=== PATIENT | female | born 1970 | race Hispanic/Latino ===

== ENCOUNTER 2022-09-17 07:36 | Observation (INO) | payer OTHER ==
[~2022-09-17] VITALS: Ht 165.1 cm; Wt 108.9 kg
[2022-09-17 08:20] VITALS: BP 110/75; PULSE 80; RESP 18; O2SAT 97
[2022-09-17] MEDS ORDERED: LEVO100 PO (09:29)
[2022-09-17] MEDS ORDERED: ONDA8TAB12 PO (09:29)
[2022-09-17] MEDS ORDERED: HYDR8TAB18 PO (09:29)
[2022-09-17] MEDS ORDERED: CYCL5TAB PO (09:29)
[2022-09-17 10:24] LABS: BASOPHILS % (AUTO) 1.3 % (0.0-5.0); EOSINOPHILS % (AUTO) 4.4 % (0.0-8.0); HEMATOCRIT 34.2 % (36-48); LYMPHOCYTES % (AUTO) 29.6 % (21.0-51.0); MEAN CORPUSCULAR HEMOGLOBIN 24.1 pg (27.0-33.0); MEAN CORPUSCULAR HGB CONC 30.4 g/dL (32.0-36.0); MEAN CORPUSCULAR VOLUME 79.4 fL (79-99); MONOCYTES % (AUTO) 6.8 % (3.0-13.0); NEUTROPHILS % (AUTO) 57.7 % (40.0-77.0); PLATELET COUNT (AUTO) 281 K/uL (130-400); RED BLOOD CELL COUNT(AUTO) 4.31 MIL/uL (4.00-5.50); WHITE BLOOD COUNT (AUTO) 4.5 K/uL (4.8-10.8)
[2022-09-17] MEDS ORDERED: LEVETIRACETAM 500 MG in 0.9%NACL 100ML 100 ML IV SCH (10:30)
[2022-09-17 10:31] LABS: INR 0.93 (0.85-1.15); PROTHROMBIN TIME 10.8 SEC (9.6-11.6)
[2022-09-17 10:32] LABS: PARTIAL THROMBOPLASTIN TIME 28.4 SEC (26.3-35.5)
[2022-09-17 10:35] LABS: ALBUMIN 3.1 g/dL (3.5-5.0); CREATININE 1.1 mg/dL (0.5-1.5); POTASSIUM 3.6 mmol/L (3.5-5.1); TOTAL PROTEIN, SERUM 6.2 g/dL (6.0-8.3)
[2022-09-17 12:00] VITALS: BP 116/65; PULSE 70; RESP 18
[2022-09-17] MEDS ORDERED: COMPOUND IV MISC 1 EACH IVSOLN MISC PRN (12:30)
[2022-09-17] MEDS ORDERED: IOHEXOL-350 75 ML VIAL IV ONE (13:57)
[2022-09-17 16:00] VITALS: BP 141/73; PULSE 70; RESP 18
[2022-09-17 20:00] VITALS: BP 127/65; PULSE 73; RESP 18; O2SAT 97
[2022-09-17] MEDS ORDERED: LEVETIRACETAM 500 MG/5 ML SD VIAL IV SCH (21:00)
[2022-09-17 23:55] VITALS: BP 108/60; PULSE 70; RESP 18
[2022-09-18] VITALS (11 sets, daily range): BP systolic 99–113; BP diastolic 44–68; PULSE 69–84; RESP 18–20; O2SAT 98
[2022-09-18] MEDS ORDERED: MIDAZOLAM HCL 1 MG/ML 2ML VIAL ONE (12:01)
[2022-09-18] MEDS ORDERED: FENTANYL CITRATE PF 50 MCG/1 ML 2ML VIAL ONE (12:01)
[2022-09-18] MEDS ORDERED: LIDOCAINE HCL 1% 20 ML VIAL ONE (12:01)
[2022-09-18] MEDS ORDERED: KETOROLAC 30MG VIAL (30MG/ML) IM ONE (16:45)
== END 2022-09-18 17:30 | disposition home or self-care (01) ==
LOC: EDH 07:36 → DIRECT 07:37 → UNDOADMOB 08:15 → DIRECT 08:15 → 3BH 08:17 → DIRECT 08:17
PROVIDERS: ADMIT Internal Medicine Hematology & Oncology; ATTEND Internal Medicine Hematology & Oncology
DX: R16.0 Hepatomegaly, not elsewhere classified (principal); K76.0 Fatty (change of) liver, not elsewhere classified; N18.9 Chronic kidney disease, unspecified; G62.9 Polyneuropathy, unspecified; E03.9 Hypothyroidism, unspecified; Z63.4 Disappearance and death of family member; Z90.49 Acquired absence of other specified parts of digestive tract; Z98.84 Bariatric surgery status; Z87.891 Personal history of nicotine dependence; Z79.899 Other long term (current) drug therapy
CPT/HCPCS: 80053; 85025; 85610; 85730; 36415; 74160; 76705; 96372; 74176; 47000; 76942; G0378 ×33; G0379; Q9967; J3010; J2250; J1885; J1953

== ENCOUNTER → 2022-10-09 | Outpatient (CLI) | payer OTHER ==
[~2022-10-09] VITALS: Ht 165.1 cm; Wt 108.1 kg
[~2022-10-09] MED LIST: CYCL5TAB PO; HYDR8TAB18 PO; LEVO100 PO; ONDA8TAB12 PO
[2022-10-09 16:52] VITALS: BP 109/62; PULSE 75; RESP 17
[2022-10-09 17:14] LABS: BASOPHILS # (AUTO) 0.07 K/uL (0.00-0.20); BASOPHILS % (AUTO) 1.2 % (0.0-5.0); EOSINOPHILS # (AUTO) 0.35 K/uL (0.00-0.70); EOSINOPHILS % (AUTO) 5.9 % (0.0-8.0); HEMATOCRIT 40.1 % (36-48); IMMATURE GRANULOCYTE ABSOLUTE 0.01 K/uL (0-1); LYMPHOCYTES # (AUTO) 1.6 K/uL (1.0-4.8); LYMPHOCYTES % (AUTO) 27.2 % (21.0-51.0); MEAN CORPUSCULAR HEMOGLOBIN 25.2 pg (27.0-33.0); MEAN CORPUSCULAR HGB CONC 30.9 g/dL (32.0-36.0); MEAN CORPUSCULAR VOLUME 81.3 fL (79-99); MONOCYTES # (AUTO) 0.5 K/uL (0.1-1.0); MONOCYTES % (AUTO) 8.1 % (3.0-13.0); NEUTROPHILS # (AUTO) 3.4 K/uL (1.8-7.7); NEUTROPHILS % (AUTO) 57.4 % (40.0-77.0); PLATELET COUNT (AUTO) 375 K/uL (130-400); RED BLOOD CELL COUNT(AUTO) 4.93 MIL/uL (4.00-5.50)
[2022-10-09 17:25] LABS: INR 0.93 (0.85-1.15); PROTHROMBIN TIME 10.3 SEC (9.6-11.6)
[2022-10-09 17:26] LABS: PARTIAL THROMBOPLASTIN TIME 27.7 SEC (26.3-35.5)
[2022-10-09 17:28] LABS: BILIRUBIN,TOTAL 0.2 mg/dL (0.2-1.0); CREATININE 1.1 mg/dL (0.5-1.5); POTASSIUM 3.9 mmol/L (3.5-5.1); TOTAL PROTEIN, SERUM 6.8 g/dL (6.0-8.3)
== END | disposition home or self-care (01) ==
LOC: DAH 10:00 → EDSTATUS 10-11 14:00
PROVIDERS: ATTEND Thoracic Surgery (Cardiothoracic Vascular Surgery)
DX: Z01.818 Encounter for other preprocedural examination (principal); C38.3 Malignant neoplasm of mediastinum, part unspecified
CPT/HCPCS: 71045; 80053; 84703; 85025; 85610; 85730; 86850; 86900; 86901; 36415; 93005; A6260

== ENCOUNTER 2022-11-02 05:33 | Emergency (ER) | payer OTHER ==
[~2022-11-02] VITALS: Ht 165.1 cm; Wt 106.6 kg
[2022-11-02] MEDS ORDERED: HYDROMORPHONE HCL 2 MG TAB ONE (05:48)
[2022-11-02] MEDS ORDERED: HYDROMORPHONE HCL 2 MG TAB PO ONE (06:00)
[2022-11-02] MEDS ORDERED: ALBUTEROL 0.083% 2.5 MG/3 ML INH IH ONE (06:00)
[2022-11-02 06:28] VITALS: RESP 18
[2022-11-02] MEDS ORDERED: LIDOCAINE HCL 2% VISCOUS 15 ML UDCUP PO ONE (08:00)
[2022-11-02] MEDS ORDERED: MAG/ALUM/SIMETH 30 ML UDCUP PO ONE (08:00)
[2022-11-02 08:27] LABS: BASOPHILS # (AUTO) 0.03 K/uL (0.00-0.20); BASOPHILS % (AUTO) 0.4 % (0.0-5.0); EOSINOPHILS # (AUTO) 0.15 K/uL (0.00-0.70); EOSINOPHILS % (AUTO) 2.1 % (0.0-8.0); HEMATOCRIT 39.3 % (36-48); IMMATURE GRANULOCYTE ABSOLUTE 0.02 K/uL (0-1); LYMPHOCYTES # (AUTO) 1.5 K/uL (1.0-4.8); LYMPHOCYTES % (AUTO) 21.4 % (21.0-51.0); MEAN CORPUSCULAR HEMOGLOBIN 26.1 pg (27.0-33.0); MONOCYTES # (AUTO) 0.5 K/uL (0.1-1.0); MONOCYTES % (AUTO) 6.9 % (3.0-13.0); NEUTROPHILS # (AUTO) 4.9 K/uL (1.8-7.7); NEUTROPHILS % (AUTO) 68.9 % (40.0-77.0); PLATELET COUNT (AUTO) 304 K/uL (130-400); RED BLOOD CELL COUNT(AUTO) 4.68 MIL/uL (4.00-5.50); RED CELL DISTRIBUTION WIDTH 22.5 % (11.0-15.5); WHITE BLOOD COUNT (AUTO) 7.1 K/uL (4.8-10.8)
[2022-11-02 08:42] LABS: CREATININE 0.9 mg/dL (0.5-1.5); POTASSIUM 3.5 mmol/L (3.5-5.1)
[2022-11-02 08:47] LABS: ALBUMIN 2.9 g/dL (3.5-5.0); BILIRUBIN,TOTAL 0.2 mg/dL (0.2-1.0); TOTAL PROTEIN, SERUM 6.6 g/dL (6.0-8.3)
[2022-11-02] MEDS ORDERED: PANT40TA55 PO (09:00)
[2022-11-02 09:25] VITALS: BP 133/78; PULSE 78; RESP 18; O2SAT 98
== END 2022-11-02 09:35 | disposition home or self-care (01) ==
LOC: EDH 05:33
DX: G89.3 Neoplasm related pain (acute) (chronic) (principal); E03.9 Hypothyroidism, unspecified; Z79.890 Hormone replacement therapy; Z90.49 Acquired absence of other specified parts of digestive tract
CPT/HCPCS: 36415; 71045; 80053; 84484; 85025; 85378; 93005; 94640

== ENCOUNTER 2024-02-28 15:01 | Emergency (ER) | payer BC, SELFPAY ==
[~2024-02-28] VITALS: Ht 165.1 cm; Wt 111.1 kg
[~2024-02-28 15:01] MED LIST changes: -CYCL5TAB PO; +CYCL5TAB3 PO; +ONDA-245 PO; -ONDA8TAB12 PO; +PANT40TA55 PO
[2024-02-28 15:16] VITALS: BP 141/75; PULSE 74; RESP 14; TEMP 97.8; O2SAT 98
[2024-02-28] MEDS: ketOROlac 60 MG VIAL (30MG/ML) IM ONE (15:35)
[2024-02-28] MEDS ORDERED: CLIN-141 PO (15:36)
[2024-02-28] MEDS ORDERED: IBUP-2077 PO (15:36)
--- NOTE | 2024-02-28 15:37 | ERN ---
ED Note History of Present Illness Stated Complaint: TOOTHACHE Chief Complaint: Tooth Ache/Pain Time Seen by MD: 15:23 Dictation: PATIENT IS A 53-YEAR-OLD FEMALE COMING IN TODAY WITH COMPLAINTS OF DENTAL DECAY GOING INTO THE PULP TOOTH NUMBER 28 SHE HAS HAD FOR TWO WEEKS. NO FEVER NO CHILLS NO NAUSEA VOMITING. STATES SHE HAS AN APPOINTMENT WITH HER DENTIST ON February HOWEVER STATES IT HURTS. SHE HAS NOT BEEN TO SEE HER PRIMARY CARE DOCTOR. Allergies: Coded Allergies: No Known Drug Allergies (Unverified Allergy, Unknown, 09/17/22) Home Meds Active Scripts Pantoprazole Sodium (Protonix) 40 Mg Ectab, 40 MG PO DAILY for 30 Days, #30 TAB.EC Prov:YARY ESTRADA MD 11/02/22 Reported Medications Ondansetron (Ondansetron Odt) 8 Mg Tab.rapdis, 1 TAB PO Q6HPRN PRN for NAUSEA 09/17/22 Cyclobenzaprine HCl (Cyclobenzaprine HCl) 5 Mg Tablet, 1 TAB PO TID 09/17/22 Hydromorphone HCl (Hydromorphone HCl) 8 Mg Tablet, 1 TAB PO TIDP PRN for pain 09/17/22 Levothyroxine Sodium (Levothroid/Synthroid) 100 Mcg Tab, 1 TAB PO DAILY for disorder of thyroid gland 09/17/22 Past Medical History Past Medical History: Depression, Hypothyroid Additional Past Medical Hx: BACK PAIN, AUTOIMMUNE, SCOLIOSIS Surgical History: Appendectomy, Cholecystectomy, Bariatric Surgery, Surgical History Other: BACK, SBO Social History: Lives with family History: Not Applicable RN Note Reviewed/Agreed w/PFSH: Yes Review of System Dictation CONSTITUTIONAL: NEGATIVE EXCEPT FOR HPI HEAD/FACE: NEGATIVE EXCEPT FOR HPI EENT: NEGATIVE EXCEPT FOR HPI DENTALGIA WITH DENTAL DECAY RESPIRATORY: NEGATIVE EXCEPT FOR HPI GASTROINTESTINAL/ABDOMINAL: NEGATIVE EXCEPT FOR HPI GENITOURINARY: NEGATIVE EXCEPT FOR HPI MUSCULOSKELETAL: NEGATIVE EXCEPT FOR HPI INTEGUMENTARY: NEGATIVE EXCEPT FOR HPI NEUROLOGICAL/PSYCH: NEGATIVE EXCEPT FOR HPI HEMATOLOGIC/LYMPHATIC: NEGATIVE EXCEPT FOR HPI ALL SYSTEMS NEGATIVE, EXCEPT NOTED ABOVE. 13 POINT REVIEW OF SYSTEMS ASSESSED AND ALL NEGATIVE EXCEPT FOR ABOVE. Initial Vital Sign VS Vital Signs Date Time Temp Pulse Resp B/P (MAP) Pulse Ox O2 Delivery O2 Flow Rate FiO2 02/28/24 15:04 97.9 74 16 133/59 98 Room Air 0 02/28/24 15:16 21 Physical Exam Dictation VITAL SIGNS REVIEWED GENERAL APPEARANCE: ALERT, ORIENTED X 3, MODERATE ACUTE DISTRESS, WELL DEVELOPED, NOURISHED. OBESE HEAD AND FACE: NON-TRAUMATIC. EYES: PERRL, PINK CONJUNCTIVAS, EYELID NO TRAUMA, ANTERIOR CHAMBER WITH ARCUS SENILIS. EARS: PINNAS INTACT AND NO SIGNS OF TRAUMA OR ERYTHEMA EAR CANALS CLEAR AND NO DISCHARGE TM NO ERYTHEMA NOSE: NO DISCHARGE, NO BLEEDING. OROPHARYNX: MOUTH NORMAL, TONGUE PINK, DENTAL DECAY WITH MILD GINGIVAL ERYTHEMA TOOTH NUMBER 28. NO FACIAL SWELLING PHARYNX CLEAR,NO ERYTHEMA, TONSILS NO EXUDATES, NO ABSCESSES NOTED, MUCOUS MEMBRANE MOIST NECK: SUPPLE, NON-TENDER, NO THYROMEGALY, NO MASSES, NO JVD, NO BRUITS BREAST:DEFERRED CHEST:NO TENDERNESS, NO CREPITUS, NO PARADOXICAL MOVEMENT, NO RETRACTIONS LUNGS:CLEAR, WELL-VENTILATED, SYMMETRIC, NO RALES, NO WHEEZING, NO RHONCHI, NO STRIDOR, GOOD BREATH SOUNDS BILATERALLY HEART: REGULAR RATE, REGULAR RHYTHM, NO MURMUR, NO GALLOPS VASCULAR: NO PERIPHERAL EDEMA, ABDOMEN: SOFT, POSITIVE BOWEL SOUNDS, NONDISTENDED, NO GUARDING, NONTENDER, NO REBOUND, NO MASSES NO HEPATOMEGALY, NO SPLENOMEGALY, NO POOLE'S SIGN, NO HERNIAS. RECTAL: DEFERRED GENITAL: DEFERRED NEUROLOGICAL: NORMAL SPEECH, MOTOR FUNCTION INTACT, SENSORY FUNCTION INTACT MUSCULOSKELETAL: NECK NONTENDER, FULL RANGE OF MOTION, BACK NONTENDER, FULL RANGE OF MOTION, EXTREMITIES: NONTENDER, FULL RANGE OF MOTION SKIN: COLOR PINK, DRY, NO TURGOR, NO RASH, NO LACERATIONS, NO ABRASIONS, NO CONTUSIONS. LYMPHATIC: DEFERRED Results (Laboratory/Radiology) Labs Reviewed?: Yes ED Course ED Course Orders Procedure Category Date Status Time Ketorolac 60mg/2ml PHA 02/28/24 Transmitted (Toradol 60mg/2ml) 15:30 Current Medications Medications (Trade) Dose Ordered Sig/Kathleen Route PRN Reason Start Time Stop Time Status Last Admin Dose Admin Ketorolac Tromethamine (toRADol 60MG/ 2ML) 60 mg ONCE ONCE IM 02/28/24 15:30 02/28/24 15:31 Vital Signs Date Time Temp Pulse Resp B/P (MAP) Pulse Ox O2 Delivery O2 Flow Rate FiO2 02/28/24 15:16 97.9 74 14 141/75 98 Room Air* 0 21 02/28/24 15:04 97.9 74 16 133/59 98 Room Air 0 1532, PATIENT GIVEN TORADOL 60 MG IM AND PRESCRIBED CLINDAMYCIN AND IBUPROFEN TOLD TO SEE HER DENTIST OR HER PRIMARY CARE DOCTOR FOR FURTHER MANAGEMENT Medical Decision Making MDM MEDICAL DISCHARGE MAKING BASED ON EMPIRIC TREATMENT FOR DENTALGIA WITH DENTAL CARIES INTO PULP PATIENT GIVEN TORADOL 60 MG IM PRESCRIBED IBUPROFEN AND CLINDAMYCIN 300 Q.I.D. FOR 10 DAYS. DX & DISP Disposition: Discharge Departure Impression: Primary Impression: Dental caries extending into pulp Additional Impression: Dentalgia Condition: Stable Scripts Ibuprofen (Ibuprofen 800 mg Tab) 800 Mg Tab 800 MG PO Q8H PRN for fever or pain, #30 TAB 0 Refills Prov: ANA LILIA MEDEL DIRECTOR WORKFORCE MANAGEMENT 02/28/24 Clindamycin HCl (Clindamycin HCl) 300 Mg Capsule 1 CAP PO QID for 10 Days, #40 CAP 0 Refills Prov: ANA LILIA MEDEL DIRECTOR WORKFORCE MANAGEMENT 02/28/24 Additional Instructions: FOLLOW-UP WITH PRIMARY CARE PROVIDER IN 1 TO 2 DAYS. TAKE MEDICATIONS DIRECTED HERE IN THE EMERGENCY ROOM. OKAY TO CONTINUE HOME MEDICATIONS UNLESS OTHERWISE DISCUSSED DURING YOUR VISIT IN THE EMERGENCY ROOM TODAY. RETURN TO YOUR NEAREST EMERGENCY ROOM IF SYMPTOMS WORSEN OR IF THERE IS NO IMPROVEMENT. CALL 911 IF YOU NEED IMMEDIATE ASSISTANCE. TAKE TYLENOL OR MOTRIN [id number] NEEDED AND IF NO CONTRAINDICATIONS ARE PRESENT. INCREASE ORAL HYDRATION. A WOUND CULTURE OR URINE CULTURE WAS ORDERED HERE IN THE EMERGENCY ROOM DEPARTMENT PLEASE FOLLOW-UP WITH PRIMARY CARE PROVIDER AND ADVISE THEM TO GET REPEAT PORTS FROM OUR FACILITY. IF YOU HAD ANY [id number] WRAP/SPLINTS THAT WERE APPLIED HERE, PLEASE DO NOT REMOVE THEM UNTIL YOU SEE YOUR PRIMARY CARE OR SPECIALTY. TAKE CLINDAMYCIN DIRECTED UNTIL GONE. TAKE TWO CAPSULES THE 1ST DOSE, THEN ONE CAPSULE EVERY 6 HOURS UNTIL GONE. SEE YOUR PRIMARY CARE DOCTOR FOR FOLLOW UP OR YOUR DENTIST FOR MANAGEMENT Referrals: MELINA OLIVIA MD (PCP) Time of Disposition: 15:35 I have reviewed the case, and I agree with, Diagnosis and Plan ANA LILIA MEDEL NP Feb 28, 2024 15:37
== END 2024-02-28 15:46 | disposition home or self-care (01) ==
LOC: EDH 15:01
DX: K02.9 Dental caries, unspecified (principal); E03.9 Hypothyroidism, unspecified; Z79.890 Hormone replacement therapy; Z79.899 Other long term (current) drug therapy; Z90.49 Acquired absence of other specified parts of digestive tract; Z98.890 Other specified postprocedural states
CPT/HCPCS: 99284; 96372; J1885

== ENCOUNTER 2024-09-06 03:56 | Emergency (ER) | payer BC ==
[~2024-09-06] VITALS: Ht 162.6 cm; Wt 112.9 kg
[~2024-09-06 03:56] MED LIST changes: +CLIN-141 PO; +IBUP-2077 PO
[2024-09-06 03:57] VITALS: TEMP 98.9
--- NOTE | 2024-09-06 04:15 | NUR ---
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
--- NOTE | 2024-09-06 04:23 | ERN ---
ED Note History of Present Illness Stated Complaint: HEADACHE Chief Complaint: Headache Time Seen by MD: 04:04 Dictation: This is a 53-year-old morbidly obese female who came in with her spouse for evaluation of a headache. She stated that she has headaches chronically and also back pain and she takes oxycodone. She ran out of oxycodone 2 days ago. Apparently she took whatever she had at home as well as Ambien for sleep and as the headache was so severe she came in for evaluation. She appeared very restless and most of her headache is across the forehead which started earlier today. No nausea vomitings no visual disturbance-diplopia or motor weakness no seizure activity she stated that she has chronic pain due to rheumatoid arthritis. The spouse also indicated that she fell a few days ago and bruised her right leg. No loss of consciousness no injury to the head She denied any unilateral lacrimation or nasal drainage. No history of any aura. No photosensitivity. Temperature 99 pulse 96 respirations 16 blood pressure 147/101 with a pulse oximetry of 98% on room air Her other medical problems include hypothyroidism, depression and history of bariatric surgery, history of autoimmune disease she states rheumatoid arthritis Allergies: Coded Allergies: No Known Drug Allergies (Unverified Allergy, Unknown, 09/17/22) Home Meds Active Scripts Prochlorperazine Maleate (Compazine) 5 Mg Tab, 1 TAB PO QID for 5 Days, #20 TAB 0 Refills Prov:SUSU COLE MD 09/06/24 Ketorolac Tromethamine (Toradol) 10 Mg Tab, 10 MG PO QID for pain for 5 Days, #20 TAB 0 Refills Prov:SUSU COLE MD 09/06/24 Ibuprofen (Ibuprofen 800 mg Tab) 800 Mg Tab, 800 MG PO Q8H PRN for fever or pain, #30 TAB 0 Refills Prov:ANA LILIA MEDEL NP 02/28/24 Clindamycin HCl (Clindamycin HCl) 300 Mg Capsule, 1 CAP PO QID for 10 Days, #40 CAP 0 Refills Prov:ANA LILIA MEDEL NP 02/28/24 Pantoprazole Sodium (Protonix) 40 Mg Ectab, 40 MG PO DAILY for 30 Days, #30 TAB.EC Prov:YARY ESTRADA MD 11/02/22 Reported Medications Ondansetron (Ondansetron Odt) 8 Mg Tab.rapdis, 1 TAB PO Q6HPRN PRN for NAUSEA 09/17/22 Cyclobenzaprine HCl (Cyclobenzaprine HCl) 5 Mg Tablet, 1 TAB PO TID 09/17/22 Hydromorphone HCl (Hydromorphone HCl) 8 Mg Tablet, 1 TAB PO TIDP PRN for pain 09/17/22 Levothyroxine Sodium (Levothroid/Synthroid) 100 Mcg Tab, 1 TAB PO DAILY for disorder of thyroid gland 09/17/22 Past Medical History Past Medical History: Depression, Hypothyroid Additional Past Medical Hx: BACK PAIN, AUTOIMMUNE, SCOLIOSIS, THYROID Surgical History: Appendectomy, Cholecystectomy, Bariatric Surgery, Surgical History Other: BACK, SBO Family History: Negative Social History: Negative, Lives with family History: Not Applicable RN Note Reviewed/Agreed w/PFSH: Yes Review of System Dictation Constitutional: Negative for fever,chills, and weight loss Eyes: Negative for injury, pain,redness, and discharge ENT: Negative for injury,pain or swelling Cardiovascular: Negative for chest pain, palpitations, and edema Respiratory: Negative for shortness of breath, cough, and wheezing, Abdomen/GI: Negative for abdominal pain, nausea, vomiting, diarrhea, and constipation Back: Negative for injury and pain : Negative for injury, bleeding and discharge MS/Extremity: Negative for injury and deformity Skin: Negative for rash, and discoloration Neuro: Positive for headache, denied weakness, numbness, tingling, and seizure Psych: Negative for suicide ideation, homicidal ideation, and hallucinations Initial Vital Sign VS Vital Signs Date Time Temp Pulse Resp B/P (MAP) Pulse Ox O2 Delivery O2 Flow Rate FiO2 09/06/24 03:57 99.0 96 16 147/101 98 Room Air 09/06/24 05:16 0 21 Physical Exam Dictation General: Sleepy but easily arousable and appropriate, NAD morbidly obese Head/Face: Normocephalic, atraumatic Eyes: PERRL, EOMI, vision at baseline ENT: oral cavity clear, TMs clear, no signs of infection Neck: Trachea midline, supple, no nuchal rigidity Cardiovascular: RRR, normal S1/S2, No MRGs, no JVD Respiratory: CTAB, no respiratory distress, No rales or wheezes Abdomen: Soft, non-tender, non-distended, normal bowel sounds, no guarding or rebound. Skin: Warm, dry, normal turgor, bruises on the lateral aspect of the right leg MS/Extremity: Pulses equal, no cyanosis, neurovascular intact, FROM Neuro: COAx4, GCS 15, strength 5/5, CN 2-12 intact, normal cerebellar exam, normal gait, Psych: Normal behavior, mood, and affect normal Extremities-trace edema without any palpable cords, Homans sign is negative Results (Laboratory/Radiology) Laboratory/Radiology Laboratory Tests Test 09/06/24 04:15 09/06/24 04:19 White Blood Count 12.5 K/uL (4.8-10.8) H Red Blood Count 4.54 MIL/uL (4.00-5.50) Hemoglobin 13.0 g/dL (12.0-16.0) Hematocrit 39.7 % (36-48) Mean Corpuscular Volume 87.4 fL (79-99) Mean Corpuscular Hemoglobin 28.6 pg (27.0-33.0) Mean Corpuscular Hemoglobin Concent 32.7 g/dL (32.0-36.0) Red Cell Distribution Width 13.9 % (11.0-15.5) Platelet Count 296 K/uL (130-400) Mean Platelet Volume 10.0 fL (7.5-10.5) Immature Granulocyte % (Auto) 0.6 % (0-1) Neutrophils (%) (Auto) 77.7 % (40.0-77.0) H Lymphocytes (%) (Auto) 14.4 % (21.0-51.0) L Monocytes (%) (Auto) 7.0 % (3.0-13.0) Eosinophils (%) (Auto) 0.0 % (0.0-8.0) Basophils (%) (Auto) 0.3 % (0.0-5.0) Neutrophils # (Auto) 9.7 K/uL (1.8-7.7) H Lymphocytes # (Auto) 1.8 K/uL (1.0-4.8) Monocytes # (Auto) 0.9 K/uL (0.1-1.0) Eosinophils # (Auto) 0.00 K/uL (0.00-0.70) Basophils # (Auto) 0.04 K/uL (0.00-0.20) Absolute Immature Granulocyte (auto 0.08 K/uL (0-1) Nucleated Red Blood Cells 0.0 % (0.0-0.19) Sodium Level 136 mmol/L (136-145) Potassium Level 4.4 mmol/L (3.5-5.1) Chloride Level 103 mmol/L (101-111) Carbon Dioxide Level 23 mmol/L (21-32) Blood Urea Nitrogen 26 mg/dL (7-18) H Creatinine 1.0 mg/dL (0.5-1.0) Glomerular Filtration Rate Calc 67 mL/min (>90) Random Glucose 107 mg/dL (70-105) H Total Calcium 9.1 mg/dL (8.5-10.1) Urine Color LIGHT-YELLOW (YELLOW) Urine Appearance CLEAR (CLEAR) Urine pH 5.5 (5.0-8.0) Urine Specific [place] 1.025 (1.001-1.031) Urine Protein NEGATIVE mg/dL (NEGATIVE) Urine Glucose (UA) NEGATIVE mg/dL (NEGATIVE) Urine Ketones NEGATIVE mg/dL (NEGATIVE) Urine Occult Blood NEGATIVE (NEGATIVE) Urine Nitrate NEGATIVE (NEGATIVE) Urine Bilirubin NEGATIVE mg/dL (NEGATIVE) Urine Urobilinogen 0.2 mg/dL (0.2-1.0) Urine Leukocyte Esterase NEGATIVE Mert/uL Labs Reviewed?: Yes CT Scan Comment: REASON: severe headache No neuro deficits ORDERING PHYSICIAN: SUSU COLE MD PROCEDURE: HEAD WO - CT HEAD/BRAIN W/O CONTRAST EXAM: CT examination of the Brain without contrast. CLINICAL HISTORY: Severe headache. TECHNIQUE: Thin collimated axial CT images of the brain were obtained with sagittal and coronal reformatted images also submitted. CT scan done according to ALARA (As Low as Reasonably Achievable). CONTRAST USED: None. COMPARISON: None provided. FINDINGS: No acute intracranial abnormality is present. No acute cortical infarction, hemorrhage, mass or mass effect. No hydrocephalus or abnormal extra-axial fluid collections. The posterior fossa is unremarkable. The skull base and calvarium are intact. The included portions of the paranasal sinuses and mastoid air cells are clear. IMPRESSION: No acute intracranial abnormality is present. /[place] DICTATED BY: VERENICE HURST Jr., MD DATE: 09/06/24551 ELECTRONICALLY SIGNED BY: VERENICE HURST Jr., MD DATE: 09/06/24551 ED Course ED Course Orders Procedure Category Date Status Time Cbc With Differential LAB 09/06/24 Complete 04:13 Basic Metabolic Panel LAB 09/06/24 Complete 04:13 Urinalysis Profile LAB 09/06/24 Complete 04:13 Morphine 4mg Syg PHA 09/06/24 Complete (Morphine 4mg Syg) 04:30 Ondansetron 4mg Inj PHA 09/06/24 Complete (Zofran 4mg Inj) 04:30 Ct Head/Brain W/O CT 09/06/24 Resulted Contrast 04:13 Diphenhydramine Hcl PHA 09/06/24 Complete (Benadryl Inj) 04:30 Current Medications Medications (Trade) Dose Ordered Sig/Kathleen Route PRN Reason Start Time Stop Time Status Last Admin Dose Admin Diphenhydramine HCl (BENAdryl INJ) 50 mg ONCE ONCE IV 09/06/24 04:30 09/06/24 04:31 DC 09/06/24 05:06 Morphine Sulfate (morPHINE 4MG SYG) 4 mg ONCE ONCE IVP 09/06/24 04:30 09/06/24 04:31 DC 09/06/24 05:07 Ondansetron HCl (zoFRAN 4MG INJ) 4 mg ONCE ONCE IVP 09/06/24 04:30 09/06/24 04:31 DC 09/06/24 05:06 Vital Signs Date Time Temp Pulse Resp B/P (MAP) Pulse Ox O2 Delivery O2 Flow Rate FiO2 09/06/24 05:16 80 18 156/96 98 Room Air* 0 21 09/06/24 03:57 99.0 96 16 147/101 98 Room Air We will perform diagnostic labs, advanced imaging and administer medications according to the patient's complaint. Once the results are available, will review and personally interpreted the labs to rule out any acute life- threatening emergency the trach require immediate intervention and treatment. I will then re-evaluate the patient after treatment and diagnostic exams have return to determine whether the patient requires any further testing, can safely be discharged home or need further admission to hospital for additional treatment and evaluation. Labs reviewed CBC showed a white count of 12.5 BNP 7 is significant for a BUN and creatinine of 26 and 1.0 Urinalysis is unremarkable. CT scan of the head did not show any intracranial abnormalities. I updated the patient and spouse on all the available results as well as CT head and reassured them. 6:00 a.m. on re-evaluation she felt significantly improved with a headache. I have counseled her on nonsteroidals and renal dysfunction and instructed her not to take more than 5 days but best to avoid it Medical Decision Making MDM MDM: Differential diagnosis: Tension headache, migraine, vascular headache, cluster headache, partial hemicrania, intracranial event, TMJ arthritis Rationale: Tests considered and ordered secondary to shared decision making include: Previous outside records reviewed: Old ER visits. Risk of complication and/or morbidity or mortality of patient management: None Medications-Per medication reconciliation Need for hospitalization: Patient does not meet criteria for hospitalization. Need for emergency major/minor surgery: No There are no social concerns with this patient. Prescription drug management Prescriptions will include symptomatic care Patient's prior external medical records from other ER visits were reviewed by davina harris as indicated. Prior testing and results from previous visits were reviewed. Prior tests were taken into account with medical decision making and resource utilization, independent historian/historians were used to obtain complete medical history. I independently interpreted the test that were performed, results were reviewed by me and considered findings on radiology if ordered. Medical management and examination interpretation discussions were had by me with other qualified healthcare professionals as indicated for the patient's care. Problem List Problem List: (1) Headache syndrome (2) Morbid obesity (3) Hypothyroidism DX & DISP Disposition: Discharge Departure Impression: Primary Impression: Headache syndrome Additional Impressions: Morbid obesity, Hypothyroidism Condition: Stable Scripts Prochlorperazine Maleate (Compazine) 5 Mg Tab 1 TAB PO QID for 5 Days, #20 TAB 0 Refills Prov: SUSU COLE MD 09/06/24 Ketorolac Tromethamine (Toradol) 10 Mg Tab 10 MG PO QID for pain for 5 Days, #20 TAB 0 Refills Prov: SUSU COLE MD 09/06/24 Additional Instructions: Patient and the caregiver have been informed of all the diagnostic tests and the imaging conducted during the today's visit to the emergency room and has verbalized understanding of the results I have personally reviewed and interpreted all diagnostic exams performed here in the ER today as well as the vital signs documented by the nursing staff. The patient is now being discharged to home and should follow up with the primary care physician or the specialist as directed by the ER staff. Follow-up with primary care provider in 1 to 2 days. Take medications as directed here in the emergency room. Okay to continue home medications unless otherwise discussed during your visit in the emergency room today. Return to your nearest emergency room if symptoms worsen or if there is no improvement. Call 911 if you need immediate assistance. Take Tylenol or Motrin [id number] as needed and if no contraindications are present. Increase oral hydration. A wound culture or urine culture was ordered here in the emergency room department please follow-up with primary care provider and advise them to get repeat ports from our facility. If you had any Papo wrap/splints that were applied here, please do not remove them until you see your primary care or specialty. Referrals: MELINA OLIVIA MD (PCP) SUSU COLE MD Sep 06, 2024 04:23
--- NOTE | 2024-09-06 04:25 | NUR ---
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
--- NOTE | 2024-09-06 04:53 | HMCIMG ---
EXAM: CT examination of the Brain without contrast. CLINICAL HISTORY: Severe headache. TECHNIQUE: Thin collimated axial CT images of the brain were obtained with sagittal and coronal reformatted images also submitted. CT scan done according to ALARA (As Low as Reasonably Achievable). CONTRAST USED: None. COMPARISON: None provided. FINDINGS: No acute intracranial abnormality is present. No acute cortical infarction, hemorrhage, mass or mass effect. No hydrocephalus or abnormal extra-axial fluid collections. The posterior fossa is unremarkable. The skull base and calvarium are intact. The included portions of the paranasal sinuses and mastoid air cells are clear. IMPRESSION: No acute intracranial abnormality is present. /[place]
[2024-09-06 05:03] LABS: IMMATURE GRANULOCYTE ABSOLUTE 0.08 K/uL (0-1); NUCLEATED RED BLOOD CELLS 0.0 % (0.0-0.19); PLATELET COUNT (AUTO) 296 K/uL (130-400); RED BLOOD CELL COUNT(AUTO) 4.54 MIL/uL (4.00-5.50); RED CELL DISTRIBUTION WIDTH 13.9 % (11.0-15.5); WHITE BLOOD COUNT (AUTO) 12.5 K/uL (4.8-10.8)
[2024-09-06 05:10] LABS: CREATININE 1.0 mg/dL (0.5-1.0); GLOMERULAR FILTR. RATE CALC 67.0 mL/min (>90); GLUCOSE,RANDOM 107.0 mg/dL (70-105); SODIUM SERUM 136.0 mmol/L (136-145); UREA NITROGEN, BLOOD 26.0 mg/dL (7-18)
[2024-09-06 05:14] LABS: APPEARANCE,URINE CLEAR (CLEAR); GLUCOSE, URINE (UA) NEGATIVE (NEGATIVE); LEUKOCYTE ESTERASE ,URINE NEGATIVE Leu/uL (NEGATIVE); NITRATE,URINE NEGATIVE (NEGATIVE); OCCULT BLOOD,URINE NEGATIVE (NEGATIVE)
[2024-09-06 05:15] LABS: ADD UA MICROSCOPIC NO
[2024-09-06 05:16] VITALS: BP 156/96; PULSE 80; RESP 18; O2SAT 98
[2024-09-06] MEDS ORDERED: PROC5TAB54 PO (05:42)
[2024-09-06] MEDS ORDERED: KETO10 PO (05:42)
== END 2024-09-06 06:08 | disposition home or self-care (01) ==
LOC: EDH 03:56
DX: G44.89 Other headache syndrome (principal); E66.01 Morbid (severe) obesity due to excess calories; E03.9 Hypothyroidism, unspecified; Z79.890 Hormone replacement therapy; Z79.899 Other long term (current) drug therapy; Z90.49 Acquired absence of other specified parts of digestive tract
CPT/HCPCS: 99284; 96374; 70450; 96375; 80048; 85025; 81003; 36415; J1200; J2405; J2270

== ENCOUNTER 2024-10-24 12:52 | Emergency (ER) | payer BC ==
[~2024-10-24] VITALS: Ht 165.1 cm; Wt 112.5 kg
[~2024-10-24 12:52] MED LIST changes: +KETO10 PO; +PROC5TAB54 PO
[2024-10-24 12:59] VITALS: BP 177/80; PULSE 87; RESP 16; TEMP 98; O2SAT 99
--- NOTE | 2024-10-24 13:10 | ERN ---
ED Note History of Present Illness Stated Complaint: ACCIDENTAL OD Chief Complaint: Accidental Ingestion Time Seen by MD: 12:57 Dictation: PATIENT IS A 54-YEAR-OLD FEMALE HERE WITH COMPLAINTS OF TAKING AN OXYCODONE 10 MG WITH TWO TRAMADOL 50S 1 HOUR PRIOR TO ARRIVAL. SHE STATES SHE HAS A HISTORY OF SEVERE ARTHRITIS AND THOUGHT SHE WAS TAKING OXYCODONE WITH TWO IBUPROFEN. SHE STATES WHEN SHE REALIZED SHE HAD DONE SHE HAD GOOGLE AND THE GOOGLE TOLD HER THAT SHE COULD POSSIBLY HAVE A FATAL OVERDOSE. SO SHE CAME TO THE EMERGENCY ROOM SHE IS ALERT AND ORIENTED X4 SPEECH IS CLEAR DROVE HERSELF TO THE HOSPITAL HAS A NIECE WITH HER. HEMODYNAMICALLY STABLE CURRENT BLOOD PRESSURE 177/80 RESPIRATIONS ARE UNLABORED DENIES SUICIDAL OR HOMICIDAL IDEATION Allergies: Coded Allergies: No Known Drug Allergies (Unverified Allergy, Unknown, 09/17/22) Home Meds Active Scripts Prochlorperazine Maleate (Compazine) 5 Mg Tab, 1 TAB PO QID for 5 Days, #20 TAB 0 Refills Prov:SUSU COLE MD 09/06/24 Ketorolac Tromethamine (Toradol) 10 Mg Tab, 10 MG PO QID for pain for 5 Days, #20 TAB 0 Refills Prov:SUSU COLE MD 09/06/24 Ibuprofen (Ibuprofen 800 mg Tab) 800 Mg Tab, 800 MG PO Q8H PRN for fever or pain, #30 TAB 0 Refills Prov:ANA LILIA MEDEL NP 02/28/24 Clindamycin HCl (Clindamycin HCl) 300 Mg Capsule, 1 CAP PO QID for 10 Days, #40 CAP 0 Refills Prov:ANA LILIA MEDEL NP 02/28/24 Pantoprazole Sodium (Protonix) 40 Mg Ectab, 40 MG PO DAILY for 30 Days, #30 TAB.EC Prov:YARY ESTRADA MD 11/02/22 Reported Medications Ondansetron (Ondansetron Odt) 8 Mg Tab.rapdis, 1 TAB PO Q6HPRN PRN for NAUSEA 09/17/22 Cyclobenzaprine HCl (Cyclobenzaprine HCl) 5 Mg Tablet, 1 TAB PO TID 09/17/22 Hydromorphone HCl (Hydromorphone HCl) 8 Mg Tablet, 1 TAB PO TIDP PRN for pain 09/17/22 Levothyroxine Sodium (Levothroid/Synthroid) 100 Mcg Tab, 1 TAB PO DAILY for disorder of thyroid gland 09/17/22 Past Medical History Past Medical History: Other Additional Past Medical Hx: chronic back pain, ra, scoliosis Surgical History: Other, Bariatric Surgery Surgical History Other: bowel obstruction, chronic back pain Family History: Negative Social History: Negative, Lives with family History: Not Applicable RN Note Reviewed/Agreed w/PFSH: Yes Review of System Dictation CONSTITUTIONAL: NEGATIVE EXCEPT FOR HPI HEAD/FACE: NEGATIVE EXCEPT FOR HPI EENT: NEGATIVE EXCEPT FOR HPI RESPIRATORY: NEGATIVE EXCEPT FOR HPI GASTROINTESTINAL/ABDOMINAL: NEGATIVE EXCEPT FOR HPI GENITOURINARY: NEGATIVE EXCEPT FOR HPI MUSCULOSKELETAL: NEGATIVE EXCEPT FOR HPI INTEGUMENTARY: NEGATIVE EXCEPT FOR HPI NEUROLOGICAL/PSYCH: NEGATIVE EXCEPT FOR HPI HEMATOLOGIC/LYMPHATIC: NEGATIVE EXCEPT FOR HPI ALL SYSTEMS NEGATIVE, EXCEPT NOTED ABOVE. 13 POINT REVIEW OF SYSTEMS ASSESSED AND ALL NEGATIVE EXCEPT FOR ABOVE. Initial Vital Sign VS Vital Signs Date Time Temp Pulse Resp B/P (MAP) Pulse Ox O2 Delivery O2 Flow Rate FiO2 10/24/24 12:54 98.1 87 16 177/80 99 Room Air 5.0 10/24/24 12:59 21 Physical Exam Dictation VITAL SIGNS REVIEWED GENERAL APPEARANCE: ALERT, ORIENTED X 3, NO ACUTE DISTRESS, WELL DEVELOPED, NOURISHED. HEAD AND FACE: NON-TRAUMATIC. EYES: PERRL, PINK CONJUNCTIVAS, EYELID NO TRAUMA, ANTERIOR CHAMBER WITH ARCUS SENILIS. EARS: PINNAS INTACT AND NO SIGNS OF TRAUMA OR ERYTHEMA EAR CANALS CLEAR AND NO DISCHARGE TM NO ERYTHEMA NOSE: NO DISCHARGE, NO BLEEDING. OROPHARYNX: MOUTH NORMAL, TONGUE PINK, PHARYNX CLEAR,NO ERYTHEMA, TONSILS NO EXUDATES, NO ABSCESSES NOTED, MUCOUS MEMBRANE MOIST NECK: SUPPLE, NON-TENDER, NO THYROMEGALY, NO MASSES, NO JVD, NO BRUITS BREAST:DEFERRED CHEST:NO TENDERNESS, NO CREPITUS, NO PARADOXICAL MOVEMENT, NO RETRACTIONS LUNGS:CLEAR, WELL-VENTILATED, SYMMETRIC, NO RALES, NO WHEEZING, NO RHONCHI, NO STRIDOR, GOOD BREATH SOUNDS BILATERALLY RESPIRATIONS UNLABORED HEART: REGULAR RATE, REGULAR RHYTHM, NO MURMUR, NO GALLOPS VASCULAR: NO PERIPHERAL EDEMA, ABDOMEN: SOFT, POSITIVE BOWEL SOUNDS, NONDISTENDED, NO GUARDING, NONTENDER, NO REBOUND, NO MASSES NO HEPATOMEGALY, NO SPLENOMEGALY, NO POOLE'S SIGN, NO HERNIAS. RECTAL: DEFERRED GENITAL: DEFERRED NEUROLOGICAL: NORMAL SPEECH, MOTOR FUNCTION INTACT, SENSORY FUNCTION INTACT NIH IS 0 HEMODYNAMICALLY STABLE MUSCULOSKELETAL: NECK NONTENDER, FULL RANGE OF MOTION, BACK NONTENDER, FULL RANGE OF MOTION, EXTREMITIES: NONTENDER, FULL RANGE OF MOTION SKIN: COLOR PINK, DRY, NO TURGOR, NO RASH, NO LACERATIONS, NO ABRASIONS, NO CONTUSIONS. LYMPHATIC: DEFERRED Results (Laboratory/Radiology) Labs Reviewed?: Yes ED Course ED Course Vital Signs Date Time Temp Pulse Resp B/P (MAP) Pulse Ox O2 Delivery O2 Flow Rate FiO2 10/24/24 12:59 98.1 87 16 177/80 99 Room Air* 0 21 10/24/24 12:54 98.1 87 16 177/80 99 Room Air 5.0 1300/SPOKE WITH SEND A AT POISON CONTROL CASE [id number]. THERE ARE NO INTERVENTIONS REQUIRED AT THIS TIME REVIEWED PATIENT'S HISTORY EMOTIONAL STATUS AND HISTORY OF CONTROLLED SUBSTANCE USE FOR HER SEVERE ARTHRITIS. THERE WAS NO NEED FOR GASTRIC LAVAGE CHARCOAL ETC. SHE RECOMMENDED NO FURTHER CONTROLLED SUBSTANCES TODAY AND SEE HER PRIMARY CARE DOCTOR TOMORROW. Medical Decision Making MDM MEDICAL DECISION-MAKING BASED ON PHYSICAL ASSESSMENT CONTACT [facility] NO INTERVENTIONS NECESSARY STRONGLY RECOMMENDED NO FURTHER CONTROLLED SUBSTANCES TODAY SEE HER PRIMARY CARE DOCTOR IN 1-2 DAYS. DX & DISP Disposition: Discharge Departure Impression: Primary Impression: Accidental drug ingestion Condition: Stable Additional Instructions: FOLLOW-UP WITH PRIMARY CARE PROVIDER IN 1 TO 2 DAYS. TAKE MEDICATIONS DIRECTED HERE IN THE EMERGENCY ROOM. OKAY TO CONTINUE HOME MEDICATIONS UNLESS OTHERWISE DISCUSSED DURING YOUR VISIT IN THE EMERGENCY ROOM TODAY. RETURN TO YOUR NEAREST EMERGENCY ROOM IF SYMPTOMS WORSEN OR IF THERE IS NO IMPROVEMENT. CALL 911 IF YOU NEED IMMEDIATE ASSISTANCE. TAKE TYLENOL OR MOTRIN [id number] NEEDED AND IF NO CONTRAINDICATIONS ARE PRESENT. INCREASE ORAL HYDRATION. A WOUND CULTURE OR URINE CULTURE WAS ORDERED HERE IN THE EM ERGENCY ROOM DEPARTMENT PLEASE FOLLOW-UP WITH PRIMARY CARE PROVIDER AND ADVISE THEM TO GET REPEAT PORTS FROM OUR FACILITY. IF YOU HAD ANY [id number] WRAP/SPLINTS THAT WERE APPLIED HERE, PLEASE DO NOT REMOVE THEM UNTIL YOU SEE YOUR PRIMARY CARE OR SPECIALTY. TAKE NO FURTHER NARCOTICS TRAMADOL OR OXYCODONE TODAY. DIET AND ACTIVITY TOLERATED. SEE YOUR PRIMARY CARE DOCTOR FOR FOLLOW UP POISON CONTROL INFORMATION NUMBER IS [phone] Referrals: MELINA OLIVIA MD (PCP) Time of Disposition: 13:09 I have reviewed the case, and I agree with, Diagnosis and Plan ANA LILIA MEDEL NP Oct 24, 2024 13:10
== END 2024-10-24 14:12 | disposition home or self-care (01) ==
LOC: EDH 12:52
DX: T40.2X1A Poisoning by other opioids, accidental (unintentional), initial encounter (principal); Z79.890 Hormone replacement therapy; Z79.899 Other long term (current) drug therapy; Y92.89 Other specified places as the place of occurrence of the external cause
CPT/HCPCS: 99282

== ENCOUNTER 2025-01-23 17:40 | Emergency (ER) | payer BC ==
[~2025-01-23] VITALS: Ht 165.1 cm; Wt 111.1 kg
--- NOTE | 2025-01-23 17:55 | NUR ---
PT JUST PLACED IN ED BED 17
--- NOTE | 2025-01-23 17:58 | ERN ---
ED Note History of Present Illness Stated Complaint: BACK PAIN Chief Complaint: Back Pain-No Injury Time Seen by MD: 17:44 Time Seen by Midlevel: 17:48 Dictation: Ms. Darden is a 54 year old female with history of chronic back pain, RA, hypothyroidism, and morbid obesity who presented to the Emergency Department this evening for evaluation of back pain. She reports worsening of chronic lumbar and thoracic spine pain. She denies having fall/trauma, saddle anesthesia, incontinence bowel/bladder, recent illness, fever, chills, shortness of breath, cough, chest pain, palpitations, edema, abdominal pain, nausea, vomiting, hematemesis, constipation, diarrhea, melena, hematochezia, dysuria, headache, dizziness, or focal weakness/paresthesia Reviewed MRI report dated 05/15/2024: Multilevel degenerative disc disease and facet hypertrophy, moderate spinal canal stenosis at L4-L5, mild canal stenosis at L2-L3 and L3-L4. There is mild foraminal stenosis from L2-L5. She is working with Dr. Orozco and is pending surgery. This has been insurance approval. She states she must 1st try injections and physical therapy. Since she has been taking her oxycodone as well as Zanaflex but it has not been helpful. Rates pain 10/10 at this time. She has a pain management appointment in [place] (Dr. Hunt) scheduled for 02/02 . She states that she is pending approval for disability so she can start physical therapy appointments. She states currently she is not able to work, has no income, and can not afford the 20 dollar co-pay for each appointment. Allergies: Coded Allergies: No Known Drug Allergies (Unverified Allergy, Unknown, 09/17/22) Home Meds Active Scripts Cyclobenzaprine HCl (Cyclobenzaprine HCl) 5 Mg Tablet, 1 TAB PO TIDP PRN for muscle spasms, #12 TAB 0 Refills Prov:WADE KAUFFMAN 01/23/25 Prochlorperazine Maleate (Compazine) 5 Mg Tab, 1 TAB PO QID for 5 Days, #20 TAB 0 Refills Prov:SUSU COLE MD 09/06/24 Ketorolac Tromethamine (Toradol) 10 Mg Tab, 10 MG PO QID for pain for 5 Days, #20 TAB 0 Refills Prov:SUSU COLE MD 09/06/24 Ibuprofen (Ibuprofen 800 mg Tab) 800 Mg Tab, 800 MG PO Q8H PRN for fever or pain, #30 TAB 0 Refills Prov:ANA LILIA MEDEL CSW 02/28/24 Clindamycin HCl (Clindamycin HCl) 300 Mg Capsule, 1 CAP PO QID for 10 Days, #40 CAP 0 Refills Prov:ANA LILIA MEDEL CSW 02/28/24 Pantoprazole Sodium (Protonix) 40 Mg Ectab, 40 MG PO DAILY for 30 Days, #30 TAB.EC Prov:YARY ESTRADA MD 11/02/22 Reported Medications Oxycodone HCl/Acetaminophen (Oxycodone-Acetaminophen 10-325) 10 Mg-325 Mg Tablet, 1 EACH PO 6X/DAY for SEVERE PAIN, TAB 01/26/25 Ondansetron (Ondansetron Odt) 8 Mg Tab.rapdis, 1 TAB PO Q6HPRN PRN for NAUSEA 09/17/22 Cyclobenzaprine HCl (Cyclobenzaprine HCl) 5 Mg Tablet, 1 TAB PO TID 09/17/22 Hydromorphone HCl (Hydromorphone HCl) 8 Mg Tablet, 1 TAB PO TIDP PRN for pain 09/17/22 Levothyroxine Sodium (Levothroid/Synthroid) 100 Mcg Tab, 1 TAB PO DAILY for disorder of thyroid gland 09/17/22 Past Medical History Past Medical History: Hypothyroid, Other Additional Past Medical Hx: chronic back pain, ra, scoliosis Surgical History: Other, Bariatric Surgery Surgical History Other: bowel obstruction, chronic back pain Family History: Negative Social History: Negative, Lives with family History: Not Applicable RN Note Reviewed/Agreed w/PFSH: Yes Review of System Dictation REVIEW OF SYSTEMS: CONSTITUTIONAL: Patient denies fevers, chills, sweats and weight changes. EYES: Patient denies any visual symptoms. EARS, NOSE, AND THROAT: No difficulties with hearing. No symptoms of rhinitis or sore throat. CARDIOVASCULAR: Patient denies chest pains, palpitations, orthopnea and paroxysmal nocturnal dyspnea. RESPIRATORY: No dyspnea on exertion, no wheezing or cough. GI: No nausea, vomiting, diarrhea, constipation, abdominal pain, hematochezia or melena. : No urinary hesitancy or dribbling. No nocturia or urinary frequency. No abnormal urethral discharge. MUSCULOSKELETAL: Reports worsening of chronic thoracic and lumbar pain. Denies saddle anesthesia. Denies incontinence of bowel or bladder. NEUROLOGIC: No chronic headaches, no seizures. Patient denies numbness, tingling or weakness. PSYCHIATRIC: Patient denies problems with mood disturbance. No problems with anxiety. ENDOCRINE: No excessive urination or excessive thirst. DERMATOLOGIC: Patient denies any rashes or skin changes. Initial Vital Sign VS Vital Signs Date Time Temp Pulse Resp B/P (MAP) Pulse Ox O2 Delivery O2 Flow Rate FiO2 01/23/25 17:43 98.1 84 18 131/95 98 01/23/25 18:51 Room Air* 0 21 Physical Exam Dictation Vital signs: Reviewed. Afebrile Constitutional: No acute distress. Non-toxic appearing. Head/Face: Normocephalic, atraumatic. Eyes: Periorbital areas with no swelling, redness, or edema. Lids and lashes are normal. Conjunctival injection is absent. Sclera anicteric. Pupils equal, round, reactive to light. ENT: Pinnas intact and no signs of trauma or erythema. Ear canals clear and no discharge. TMs no erythema. No nasal discharge or bleeding noted. Oropharynx with no exudate, redness, swelling, masses, exudates, or evidence of obstruction. Uvula midline. Mucous membranes moist. Neck: Trachea midline, no masses palpated, and no cervical lymphadenopathy. No swelling. Supple, full range of motion. Chest/Axilla: No tenderness, no crepitus, no paradoxical movement, no retractions. Cardiovascular: Regular rate, regular rhythm, no murmur, no gallops. Symmetric pulses. No peripheral edema. Respiratory: Respirations even and unlabored. Lung sounds clear; no wheezes, rales or rhonchi. Room air SpO2 98% Gastrointestinal: Inspection is normal. No distention is appreciated. Bowel sounds are normal. No mass or organomegaly . There is no tenderness. No rebound. No rigidity. No voluntary or involuntary guarding. No Sanders's sign. Neurological: Normal speech, gross motor function intact, gross sensory function intact. No focal weakness/Paresthesia. Ambulating with steady gait. Musculoskeletal/Extremities: All extremities have full range of motion, no pain or tenderness on palpation. Symmetric pulses. All extremities strength 5/5 Integumentary: Intact. Skin is normal color, warm and dry. Cap refill less than 3 seconds. ED Course ED Course Orders Procedure Category Date Status Time Cyclobenzaprine Hcl PHA 01/23/25 Complete (Cyclobenzaprine Hcl 18:00 Dexamethasone 4mg/Ml PHA 01/23/25 Complete 1ml Vial (Dexametha 18:00 Morphine 4mg Syg PHA 01/23/25 Complete (Morphine 4mg Syg) 18:30 Current Medications Medications (Trade) Dose Ordered Sig/Kathleen Route PRN Reason Start Time Stop Time Status Last Admin Dose Admin Cyclobenzaprine HCl (Cyclobenzaprine HCl) 10 mg ONCE ONCE PO 01/23/25 18:00 01/23/25 18:01 DC 01/23/25 18:22 Dexamethasone Sodium Phosphate (dexaMETHasone 4MG/ML 1ML VIAL) 10 mg ONCE ONCE IM 01/23/25 18:00 01/23/25 18:01 DC 01/23/25 18:21 Morphine Sulfate (morPHINE 4MG SYG) 6 mg ONCE ONCE IM 01/23/25 18:30 01/23/25 18:31 DC 01/23/25 18:22 Vital Signs Date Time Temp Pulse Resp B/P (MAP) Pulse Ox O2 Delivery O2 Flow Rate FiO2 01/23/25 18:51 98.1 80 14 142/97 100 Room Air* 0 21 01/23/25 17:43 98.1 84 18 131/95 98 Patient remained hemodynamically stable throughout the ED stay with no signs of respiratory depression or neurological deterioration. She was given morphine 6 mg IM for analgesia, cyclobenzaprine 10 mg p.o. for muscle spasm, and dexamethasone 10 mg IM for inflammatory pain control. She tolerated all medications without adverse effects. Pain improved to a more manageable level, and she remained ambulatory with steady gait. Neurological exam remained uncha nged from nonfocal. No red flag symptoms develop during observation. After reassessment, the patient was comfortable with discharge, understood medication precautions (including not combining Flexeril with tizanidine), and agreed to follow up with her primary care provider, pain management, neurosurgery. Medical Decision Making MDM MDM: Differential diagnosis: Acute on chronic lumbar degenerative disc disease, muscle spasm, cauda equina syndrome, acute spinal cord compression Rationale: Tests considered and ordered secondary to shared decision making include: Examination Previous outside records reviewed: Old ER visits. Risk of complication and/or morbidity or mortality of patient management: None Medications-Per medication reconciliation Need for hospitalization: Patient does not meet criteria for hospitalization. Need for emergency major/minor surgery: No There are no social concerns with this patient. Prescription drug management: Flexeril Prescriptions will include symptomatic care Patient's prior external medical records from other ER visits were reviewed by me as indicated. Prior testing and results from previous visits were reviewed. Prior tests were taken into account with medical decision making and resource utilization, independent historian/historians were used to obtain complete medical history. I independently interpreted the test that were performed, results were reviewed by me and considered findings on radiology if ordered. Medical management and examination interpretation discussions were had by me with other qualified healthcare professionals as indicated for the patient's care. DX & DISP Disposition: Discharge Departure Impression: Primary Impression: Chronic back pain greater than 3 months duration Additional Impression: Spinal stenosis of lumbar region with radiculopathy Condition: Stable Scripts Cyclobenzaprine HCl (Cyclobenzaprine HCl) 5 Mg Tablet 1 TAB PO TIDP PRN for muscle spasms, #12 TAB 0 Refills Prov: WADE KAUFFMAN Gali CSW 01/23/25 Additional Instructions: You were evaluated today for a flare of your chronic low back pain. Your exam, strength, sensation inability walk were normal. There are no signs of nerve damage, cauda equina syndrome, or other emergency spinal conditions at this time. He received doses morphine 6 mg IM for pain as well as Flexeril 10 mg for muscle spasm and dexamethasone 10 mg IM to reduce inflammation and help with the pain over the next 24-48 hours. At home you may use Flexeril as prescribed for muscle spasms but do not mix the Flexeril with tizanidine. Only take one or the other-never at the same time due to risk of excessive sedation, low blood pressure, and respiratory depression. Continue your home oxycodone only as directed. Do not increase her dose. You may also take plain Tylenol or ibuprofen if tolerated for additional relief. Use heat, gentle stretching and avoid heavy lifting or twisting for the next 24-48 hours. Loose follow up with your primary care provider, your paint mixer, and your neurosurgeon regarding ongoing spine treatment, PT requirements, and next steps. The specialist should continue managing his chronic pain, injections, physical therapy plan, and any surgical considerations. Return to the ER immediately if you develop: New numbness or tingling in the groin or inner thighs (saddle anesthesia). New weakness in one or both legs. Trouble walking or dragging the leg. Loss of bladder or bowel control. Fever, severe headache, or chills. Inability to urinate. Pain that suddenly becomes unmanageable. Referrals: MELINA OLIVIA MD (PCP) Time of Disposition: 18:33 ATTESTATION BY PHYSICIAN I PERFORMED THE SUBSTANTIVE PORTION OF THE VISIT. I HAVE REVIEWED AND PERSONALLY MADE AND APPROVED THE MANAGEMENT PLAN THAT IS DOCUMENTED IN THE NOTE BY MYSELF FOR THE A PP. WADE KAUFFMAN Jan 23, 2025 17:58 YARY ESTRADA MD Jan 26, 2025 07:35
[2025-01-23] MEDS: CYCLOBENZAPRINE HCL 10 MG TABLET PO ONE (18:22)
[2025-01-23] MEDS ORDERED: CYCL5TAB3 PO (18:23)
[2025-01-23 18:51] VITALS: BP 142/97; PULSE 80; RESP 14; TEMP 98.1; O2SAT 100
[2025-01-26] MEDS ORDERED: OXYC1TAB12 PO (05:51)
== END 2025-01-23 18:52 | disposition home or self-care (01) ==
LOC: EDH 17:40
DX: M48.061 Spinal stenosis, lumbar region without neurogenic claudication (principal); M54.16 Radiculopathy, lumbar region; G89.29 Other chronic pain; M54.50 Low back pain, unspecified; M54.6 Pain in thoracic spine; M41.9 Scoliosis, unspecified; E03.8 Other specified hypothyroidism; Z79.899 Other long term (current) drug therapy; Z79.890 Hormone replacement therapy
CPT/HCPCS: 99284; 96372 ×2; J1100; J2270